=== PATIENT | male | born 1960 | race Caucasian/White ===

== ENCOUNTER 2020-05-21 08:33 | Day surgery (SDC) | payer BC, OTHER ==
[2020-05-20 09:15] VITALS: BMI 39.0
[~2020-05-21 08:33] MED LIST: LACTATED RINGERS 1,000 ML IV SCH; LIDOCAINE 1% (10MG/ML) FOR IV START INTRADERMA PRN
[2020-05-21 09:31] VITALS: RESP 18; TEMP 98.2
[2020-05-21] MEDS ORDERED: PROPOFOL 10 MG/ML 20 ML VIAL IV ONE (10:06)
--- NOTE | 2020-05-21 10:08 | P.GSHP ---
History of Present Illness H&P Date: 05/21/20 Chief Complaint: Screening colonoscopy Is a 60-year-old male presents today for screening colonoscopy. Denies a significant GI complaints. Past Medical History Past Medical History: Asthma, Hypertension History of Any Multi-Drug Resistant Organisms: None Reported Past Surgical History: Tonsillectomy Additional Past Surgical History / Comment(s): BUNIONECTOMY RT FOOT Past Anesthesia/Blood Transfusion Reactions: No Reported Reaction Smoking Status: Former smoker - Past Family History Mother Family Medical History: No Reported History Medications and Allergies Home Medications Medication Instructions Recorded Confirmed Type Acetaminophen [Tylenol Extra 500 mg PO DAILY 05/20/20 05/21/20 History Strength] Aspirin [Adult Low Dose Aspirin EC] 81 mg PO DAILY 05/20/20 05/21/20 History Budesonide/Formoterol Fumarate 2 puff INHALATION DAILY 05/20/20 05/21/20 History [Symbicort 160-4.5 Mcg Inhaler] Fenofibrate Nanocrystallized 145 mg PO DAILY 05/20/20 05/21/20 History [Fenofibrate] Fish Oil/Dha/Epa [Fish Oil 1,200 1 each PO HS 05/20/20 05/21/20 History mg Fish Oil] Lisinopril-Hctz 20-12.5 mg 1 tab PO BID 05/20/20 05/21/20 History [Zestoretic 20-12.5] NIFEdipine [NIFEdipine ER] 90 mg PO DAILY 05/20/20 05/21/20 History Naproxen [Naprosyn] 500 mg PO Q12HR 05/20/20 05/21/20 History Allergies Allergy/AdvReac Type Severity Reaction Status Date / Time Penicillins Allergy Swelling Verified 05/21/20 09:24 Surgical - Exam Vital Signs Temp Pulse Resp BP Pulse Ox 98.2 F 64 18 159/62 96 05/21/20 09:29 05/21/20 09:29 05/21/20 09:29 05/21/20 09:29 05/21/20 09:29 - General well developed, well nourished, no distress - Eyes PERRL - ENT normal pinna - Neck no masses - Respiratory normal expansion - Cardiovascular Rhythm: regular - Abdomen Abdomen: soft, non tender Assessment and Plan Assessment: We'll perform screening colonoscopy
--- NOTE | 2020-05-21 10:21 | P.OP ---
Date of Procedure: 05/21/20 Preoperative Diagnosis: Screening colonoscopy Postoperative Diagnosis: Diverticulosis Rectal polyp Procedure(s) Performed: Colonoscopy Anesthesia: MAC Surgeon: Stef Curtis Pathology: other (Rectal polyp) Condition: stable Disposition: PACU Description of Procedure: Patient's placed on the endoscopy table in the lateral position. He received IV sedation. Digital rectal exam was performed. The prostate was symmetrical the nodules. The flexible colonoscope was then placed patient anus passed thr oughout the entire colon. The ileocecal valve sutures. The cecum, ascending and transverse colon appeared normal. In the descending; was moderate diverticular changes. Was then brought back the rectum and there was a polyp seen this removed with cold forcep. Scope was withdrawn for patient.
[2020-05-21 10:48] VITALS: BP 143/63; PULSE 59
== END 2020-05-21 11:05 | disposition home or self-care (01) ==
LOC: ORWHC2ENDO 08:33
PROVIDERS: ATTEND Surgery
DX: Z12.11 Encounter for screening for malignant neoplasm of colon (principal); D12.8 Benign neoplasm of rectum; K57.30 Diverticulosis of large intestine without perforation or abscess without bleeding; J45.909 Unspecified asthma, uncomplicated; I10 Essential (primary) hypertension; Z90.89 Acquired absence of other organs; Z98.890 Other specified postprocedural states; Z87.891 Personal history of nicotine dependence; Z79.82 Long term (current) use of aspirin; Z79.51 Long term (current) use of inhaled steroids; Z79.899 Other long term (current) drug therapy; Z79.1 Long term (current) use of non-steroidal anti-inflammatories (NSAID); Z88.0 Allergy status to penicillin
CPT/HCPCS: 88305; 45380; J2704